=== PATIENT | male | born 1995 | race Caucasian/White ===

== ENCOUNTER 2017-03-13 21:12 | Emergency (ER) | payer BC ==
[~2017-03-13] VITALS: Ht 180.3 cm; Wt 84.9 kg
[2017-03-13 21:14] VITALS: TEMP 36.8; Ht 180.3 cm; Wt 84.9 kg
[2017-03-13] MEDS ORDERED: IBUP-1050 PO (21:32)
--- NOTE | 2017-03-13 22:40 | DIAGNOSTIC IMAGING REPORT ---
TESTICULAR ULTRASOUND HISTORY: Testicular pain. eval for torsion COMPARISON: None. FINDINGS: Right testis: 4.8 x 3.2 x 2.6 cm. There are no intratesticular masses. Normal color flow. No significant hydrocele. Small epididymal cysts are noted. Left testis: 5.1 x 3.2 x 2.2 cm. There are no intratesticular masses. Normal color flow. No significant hydrocele. The epididymis is unremarkable. IMPRESSION: 1. Normal bilateral testes. 2. Small right epididymal cysts. Electronically signed by: Kel Sebastian M.D. 03/13/2017 10:39 PM Dictated Date/Time: 03/13/2017 10:36 PM
[2017-03-13] MEDS ORDERED: DOXYCYCLINE HYCLATE 100 MG CAP PO STA (22:52)
[2017-03-13] MEDS ORDERED: DOXY100C2 PO (22:56)
[2017-03-13] MEDS ORDERED: CEFTRIAXONE SOD 350MG/ML 1 GM VIAL IM ONE (23:00)
[2017-03-13 23:23] VITALS: BP 128/71; PULSE 78; O2SAT 96
--- NOTE | 2017-03-14 00:41 | EMERGENCY ROOM VISIT NOTE ---
History Report prepared by Tim: Johnathan Cortez Under the Supervision of: Dr. Abundio Roa M.D. First contact with patient: 21:30 Chief Complaint: TESTICULAR PAIN Stated Complaint: TESTICULAR PAIN History of Present Illness The patient is a 21 year old male who presents to the Emergency Room with complaints of persistent testicular pain since yesterday afternoon. He notes the pain is mostly in his right testicle, though notes pain in the left testicle. He states they are swollen and red. He notes the pain worsened today. He currently rates his pain a 6/10 in severity. He denies any urethral discharge. He denies any recent trauma or playing any sports. He denies any history of STDs. He states that he is sexually active with women and sometimes has unprotected sex. He denies any fevers, though notes mild abdominal pain with the testicular pain. He denies any underlying medical problems. He denies any problems urinating, though notes a tingling sensation at the tip of his penis. Source of History: patient Onset: since yesterday afternoon Position: other (testicular) Symptom Intensity: 6/10 Quality: other (pain with swelling and redness) Timing: other (persistent) Associated Symptoms: + abdominal pain (mild), No fevers, No urinary symptoms Note: He notes a tingling sensation to the tip of his penis. He denies any urethral discharge. Review of Systems See HPI for pertinent positives & negatives. A total of 10 systems reviewed and were otherwise negative. Past Medical & Surgical Medical Problems: (1) No Known Active Medical Problems Family History No pertinent family history Social History Smoking Status: Never Smoker Smokeless Tobacco Use: No Alcohol Use: occasionally Marital Status: single Housing Status: lives with friends Occupation Status: employed Current/Historical Medications Scheduled Doxycycline Hyclate (Vibramycin), 100 MG PO BID Scheduled PRN Ibuprofen (Advil), 200-600 MG PO Q4H PRN for Pain Allergies Coded Allergies: POLLEN (Verified Allergy, Mild, ITCHY EYES, SNEEZING, 03/13/17) Physical Exam Vital Signs Date Time Temp Pulse Resp B/P (MAP) Pulse Ox O2 Delivery O2 Flow Rate FiO2 03/13/17 23:23 78 128/71 96 03/13/17 21:14 36.8 71 18 156/89 99 Room Air Physical Exam Constitutional: Vital signs reviewed. Eyes: Pupils are equal round reactive to light. Conjunctiva are noninjected. ENT: Pharynx is clear without erythema or exudate. Mucous membranes are moist. Neck supple without meningeal signs. Respiratory: Clear to auscultation bilaterally. Breath sounds are equal bilaterally. Cardiovascular: Regular rate and rhythm. No rubs or gallops. GI: Soft, nondistended and nontender. Bowel sounds are present. : Mild right testicular and epididymal tenderness. Normal cremasteric reflexes bilaterally. No inguinal hernia. No urethral discharge. Musculoskeletal: No peripheral edema. No lower extremity tenderness. Integumentary: No cyanosis. Neurological: The patient is awake and alert. No focal deficits. Psychiatric: Normal affect. Medical Decision & Procedures ER Provider Diagnostic Interpretation: Radiology results as stated below per my review and the radiologist's interpretation: TESTICULAR ULTRASOUND HISTORY: Testicular pain. eval for torsion COMPARISON: None. FINDINGS: Right testis: 4.8 x 3.2 x 2.6 cm. There are no intratesticular masses. Normal color flow. No significant hydrocele. Small epididymal cysts are noted. Left testis: 5.1 x 3.2 x 2.2 cm. There are no intratesticular masses. Normal color flow. No significant hydrocele. The epididymis is unremarkable. IMPRESSION: 1. Normal bilateral testes. 2. Small right epididymal cysts. Electronically signed by: Kel Sebastian M.D. 03/13/2017 10:39 PM Dictated Date/Time: 03/13/2017 10:36 PM Laboratory Results Test 03/13/17 21:37 03/13/17 22:00 Urine Color YELLOW Urine Appearance CLEAR (CLEAR) Urine pH 6.0 (4.5-7.5) Urine Specific [place] 1.020 (1.000-1.030) Urine Protein NEG (NEG) Urine Glucose (UA) NEG (NEG) Urine Ketones NEG (NEG) Urine Occult Blood 1+ (NEG) Urine Nitrite NEG (NEG) Urine Bilirubin NEG (NEG) Urine Urobilinogen NEG (NEG) Urine Leukocyte Esterase NEG (NEG) Urine WBC (Auto) 1-5 /hpf (0-5) Urine RBC (Auto) 5-10 /hpf (0-4) Urine Hyaline Casts (Auto) 1-5 /lpf (0-5) Urine Epithelial Cells (Auto) 5-10 /lpf (0-5) Urine Bacteria (Auto) NEG (NEG) Laboratory results as reviewed by me. Medications Administered Medications (Trade) Dose Ordered Sig/Mike Route Start Time Stop Time Status Last Admin Dose Admin Ceftriaxone Sodium (Rocephin Im) 250 mg NOW ONCE IM 03/13/17 23:00 03/13/17 23:01 DC 03/13/17 23:12 250 MG Doxycycline Hyclate (Vibramycin Cap) 100 mg NOW STAT PO 03/13/17 22:52 03/13/17 22:53 DC 03/13/17 23:11 100 MG ED Course 2155: The patient was evaluated in room A9B. A complete history and physical exam was performed. 2251: Ordered Doxycycline Hyclate 100 mg PO 2249: I reassessed the patient at this time. He is feeling better and resting comfortably. I discussed the results and treatment plan with the patient. I answered all pertaining questions that he had. He expressed understanding and verbalized agreement. The patient will be discharged home. 2299: Ordered Rocephin 250 mg IM Medical Decision This is a 21-year-old male presents with testicular pain. Differential diagnosis includes orchitis, epididymitis, testicular torsion, mass, STI. I did perform a limited focused review of portions of the patient's old chart on the electronic medical record. The patient has had no prior visits to this hospital. I did evaluate the patient as noted above. The patient is presenting with testicular pain since yesterday. On examination he has some mild tenderness to the right testicle. I did send a swab for GC and chlamydia. I did order and personally review the patient's urinalysis as described above. I did order an ultrasound of the scrotum. I did review the images myself as well as the radiology report as described above. There is no evidence of torsion or mass. I did discuss the test results with the patient. The patient likely has an orchitis. I did treat patient with ceftriaxone 250 mg IM. He was also given doxycycline 100 mg orally. He was discharged with a prescription for doxycycline and advised follow with [facility]. He was advised to discuss further STI testing with them. Medication Reconcilliation Current Medication List: was personally reviewed by me Blood Pressure Screening Patient's blood pressure: Elevated blood pressure Blood pressure disposition: Referred to PCP Impression Primary Impression: Orchitis Scribe Attestation The scribe's documentation has been prepared under my direct and personally reviewed by me in its entirety. I confirm that the note above accurately reflects all work, treatment, procedures, and medical decision making performed by me. Departure Information Dispostion Home / Self-Care Prescriptions Doxycycline Hyclate (VIBRAMYCIN) 100 Mg Cap 100 MG PO BID for 10 Days, #20 CAP Prov: Abundio Roa M.D. 03/13/17 Referrals [facility] (PCP) Forms HOME CARE DOCUMENTATION FORM, IMPORTANT VISIT INFORMATION, WORK / SCHOOL INSTRUCTIONS Patient Instructions ED Orchitis, My [facility] Additional Instructions You have been examined and treated today on an emergency basis only. This is not a substitute for, or an effort to provide, complete comprehensive medical care. It is impossible to recognize and treat all injuries or illnesses in a single emergency department visit. It is therefore important that you follow up closely with your physician. Call as soon as possible for an appointment. Return for worsening symptoms or if you develop fever, vomiting, abdominal pain or any other concerning symptoms.
== END 2017-03-13 23:25 | disposition home or self-care (01) ==
LOC: C.EDB 21:13 → C.EDA 23:25
DX: N45.2 Orchitis (principal)